=== PATIENT | female | born 1985 | race Caucasian/White ===

== ENCOUNTER 2022-02-10 01:42 | Outpatient (CLI) | payer OTHER ==
[2022-02-10] MEDS ORDERED: SYNTHROID88 MCG PO (03:00)
[2022-02-10] MEDS ORDERED: PRENATAL + DHA1 EAC1 PO (03:01)
[2022-02-10] MEDS ORDERED: ECOTRIN81 MG PO (03:01)
== END 2022-02-10 15:49 | disposition home or self-care (01) ==
LOC: OBS/DEL 01:42
PROVIDERS: ATTEND Obstetrics & Gynecology
DX: O26.843 Uterine size-date discrepancy, third trimester (principal); O36.8130 Decreased fetal movements, third trimester, not applicable or unspecified; O09.513 Supervision of elderly primigravida, third trimester; O28.5 Abnormal chromosomal and genetic finding on antenatal screening of mother; O24.419 Gestational diabetes mellitus in pregnancy, unspecified control; Z3A.38 38 weeks gestation of pregnancy

== ENCOUNTER 2022-02-10 13:20 | Inpatient (IN) | payer OTHER ==
[~2022-02-10] VITALS: Ht 157.5 cm; Wt 78.9 kg
[~2022-02-10 13:20] MED LIST: ECOTRIN81 MG PO; PRENATAL + DHA1 EAC1 PO; SYNTHROID88 MCG PO
== END 2022-02-13 14:47 | disposition home or self-care (01) | DRG 788 ==
LOC: OB/GYN 13:20 → LDR 13:20 → OB/GYN 23:57
PROVIDERS: ADMIT Obstetrics & Gynecology; ATTEND Obstetrics & Gynecology
PROC: 4A1HXCZ Monitoring of Products of Conception, Cardiac Rate, External Approach (ICD-10-PCS; 2022-02-10)
PROC: 10D00Z1 Extraction of Products of Conception, Low, Open Approach (ICD-10-PCS; principal; 2022-02-10 18:00)
DX: O36.5930 Maternal care for other known or suspected poor fetal growth, third trimester, not applicable or unspecified (principal); Z3A.38 38 weeks gestation of pregnancy; Z37.0 Single live birth; Z20.822 Contact with and (suspected) exposure to COVID-19